=== PATIENT | male | born 1990 | race Caucasian/White ===

== ENCOUNTER 2017-08-02 16:15 | Emergency (ER) | payer SELFPAY ==
[2017-08-02 16:27] VITALS: BP 137/87
[2017-08-02] MEDS ORDERED: Tetan/Diph/Pertus SYR(Tdap)* 0.5 ML SYR(BOOSTRIX) use SYR IM ONE (16:28)
[2017-08-02] MEDS ORDERED: Cephalexin CAP* 500 MG PO ONE ×2 (17:51→18:00)
--- NOTE | 2017-08-02 18:06 | UC ---
Laceration HPI - HPI Summary HPI Summary: Patient presents with a laceration to his left third finger and his left palm sustained just prior to arrival. Patient was trying to open an oil filter with a razor blade when he slipped. Unknown date of last tetanus. Patient has full range of motion and sensation is intact. - History Of Current Complaint Chief Complaint: UCLaceration Stated Complaint: FINGER & HAND LACERATIONS Time Seen by Provider: 08/02/17 17:06 Hx Obtained From: Patient Laceration Location: Hand - LEFT Mechanism Of Injury: Sharp Trauma Onset/Duration: Sudden Onset, Lasting Hours, Still Present Severity: Moderate Pain Intensity: 3 Pain Scale Used: 0-10 Numeric Aggravating Factors: Nothing Related History: Dominant Hand Right - Allergies/Home Medications Allergies/Adverse Reactions: Allergies Allergy/AdvReac Type Severity Reaction Status Date / Time Penicillins Allergy Unknown Verified 08/02/17 16:27 Reaction Details PMH/Surg Hx/FS Hx/Imm Hx Previously Healthy: Yes Other History Of: Negative For: Anticoagulant Therapy - Surgical History Surgical History: Yes Surgery Procedure, Year, and Place: Tonsilectomy - Family History Known Family History: Negative: Hypertension - Social History Alcohol Use: Weekly Substance Use Type: None Smoking Status (MU): Never Smoked Tobacco Review of Systems Constitutional: Negative Skin: Other - LACERATIONS LEFT 3RD FINGER AND LEFT PALM Respiratory: Negative Cardiovascular: Negative Gastrointestinal: Negative Musculoskeletal: Negative All Other Systems Reviewed And Are Negative: Yes Physical Exam Triage Information Reviewed: Yes Appearance: Well-Appearing, No Pain Distress, Well-Nourished Vital Signs: Initial Vital Signs Temp 98.9 F 08/02/17 16:18 Pulse 86 08/02/17 16:18 Resp 18 08/02/17 16:18 BP 137/87 08/02/17 16:18 Pulse Ox 99 08/02/17 16:18 Vital Signs Reviewed: Yes Eyes: Positive: Conjunctiva Clear ENT: Positive: Hearing grossly normal Neck: Positive: Supple Respiratory: Positive: No respiratory distress, No accessory muscle use Cardiovascular: Positive: Pulses Normal Abdomen Description: Positive: Soft Musculoskeletal: Positive: ROM Intact, No Edema Neurological: Positive: Alert Psychological: Positive: Age Appropriate Behavior Skin: Positive: Other - 2CM LACERATION DISTAL LEFT 3RD FINGER. 2.5 CM LINEAR LACERATION LEFT PALM HYPOTHENAR EMINENCE. EDGES WELL APPROXIMATED. NO ACTIVE BLEEDING Laceration Repair - Laceration Repair 1 Description: Linear Laceration Size After Repair: Length (cm) - 2CM, Width (mm) - 0MM, Depth (mm) - 2MM Modified For Repair: No Irrigation With Pressure Irrigation Device: Yes Closure Material: Skin Adhesive, SteriStrips 2 Description: Linear Laceration Size After Repair: Length (cm) - 2.5CM, Width (mm) - 0MM, Depth (mm) - 2MM Modified For Repair: Yes Irrigation With Pressure Irrigation Device: Yes Closure Material: Skin Adhesive, SteriStrips Laceration Course/Dx - Course/Dx Course Of Treatment: PT REPORTS RASH TYPE ALLERGY TO PCN. WILL GIVE KEFLEX FOR INFECTION PROPHYLAXIS. TDAP BOOSTED TODAY. LACERATIONS REPAIRED WITH DERMABOND AND STERISTRIPS. - Differential Dx - Laceration/Wound Provider Diagnoses: 1. LACERATION REPAIR - LEFT PALM. 2. LACERATION REPAIR - LEFT 3RD FINGER. 3. TDAP BOOSTER Discharge - Sign-Out/Discharge Documenting (check all that apply): Discharge - Discharge Plan Condition: Stable Disposition: HOME Prescriptions: Cephalexin CAP* [Keflex 500 CAP*] 1,000 mg PO BID #[id number] cap Patient Education Materials: Laceration (ED) Referrals: Brock Plasencia MD [Primary Care Provider] - If Needed Additional Instructions: KEEP DRESSINGS IN PLACE AND DRY FOR THE FIRST 24 HRS. TAKE THE ANTIBIOTICS FOR THE FULL COURSE TO HELP PREVENT INFECTION. SEEK FOLLOW-UP IF YOU DEVELOP SPREADING REDNESS OF THE SKIN, PURULENT DRAINAGE, FEVER, INCREASED PAIN OR ANY OTHER CONCERNING SYMPTOMS. THE STERISTRIPS WILL FALL OFF ON THEIR OWN IN THE NEXT 1-2 WEEKS. DO NOT PUT ANY OINTMENT ON TOP OF THEM. DO NOT SUBMERGE IN WATER FOR PROLONGED PERIOD OF TIME. OKAY FOR BRIEF SHOWER AFTER 24 HOURS AND THEN BE SURE TO ALLOW TO DRY COMPLETELY. TETANUS IMMUNIZATION GIVEN (TDAP): You have been given an immunization against tetanus. Please record this in your records. In general, a booster is needed only once every 10 years. The tetanus shot protects against tetanus or "lockjaw," which is a complication of certain wound infections (the tetanus shot cannot protect against the actual infection). The immunization site may become warm and red due to local reaction. If this occurs, apply warm compresses and take aspirin or ibuprofen to reduce inflammation and discomfort. Return for evaluation if the reaction becomes severe. - Billing Disposition and Condition Condition: STABLE Disposition: HOME
== END 2017-08-02 18:15 | disposition home or self-care (01) ==
LOC: UCEAST 16:15
DX: S61.213A Laceration without foreign body of left middle finger without damage to nail, initial encounter (principal); S61.412A Laceration without foreign body of left hand, initial encounter; W26.8XXA Contact with other sharp object(s), not elsewhere classified, initial encounter; Y93.89 Activity, other specified; Y92.9 Unspecified place or not applicable; Z23 Encounter for immunization; Z88.0 Allergy status to penicillin
CPT/HCPCS: 12002; 90471; 90715; 99202; 99203; A9270-GY; G0463